=== PATIENT | male | born 1945 | race Caucasian/White ===

== ENCOUNTER → 2020-10-17 | Outpatient (CLI) | payer OTHER ==
[~2020-10-17] MED LIST: CYAN-52 PO; FISH1CAP63 PO; GLIP10TA19 PO; LOSA100T58 PO; METF-446 PO; MULT-603 PO; REGADENOSON 0.4 MG/5 ML PF SYG IVP ONE; SIMV5TAB58 PO; TAMS0.4C32 PO; [UNRECOGNIZED DRUG - CODE] PO; [UNRECOGNIZED DRUG - OTHER] SQ
== END | disposition home or self-care (01) ==
LOC: SHCH 08:31
PROVIDERS: ATTEND Internal Medicine Cardiovascular Disease
DX: I25.10 Atherosclerotic heart disease of native coronary artery without angina pectoris (principal); I51.7 Cardiomegaly
CPT/HCPCS: 78452; 93017; 96374; A9500 ×2; J2785

== ENCOUNTER 2020-10-30 05:47 | Day surgery (SDC) | payer OTHER ==
[2020-10-26 13:00] VITALS: BP 138/66
[2020-10-26 13:23] LABS: BASOPHILS % (AUTO) 1.7 % (0.0-5.0); EOSINOPHILS % (AUTO) 3.4 % (0.0-8.0); HEMATOCRIT 34.1 % (42-54); LYMPHOCYTES % (AUTO) 27.8 % (21.0-51.0); MEAN CORPUSCULAR HEMOGLOBIN 34.1 pg (27.0-33.0); MEAN CORPUSCULAR HGB CONC 33.4 g/dL (32.0-36.0); MEAN CORPUSCULAR VOLUME 102.1 fL (79-99); MONOCYTES % (AUTO) 11.5 % (3.0-13.0); NEUTROPHILS % (AUTO) 55.2 % (40.0-77.0); PLATELET COUNT (AUTO) 133 K/uL (130-400); RED BLOOD CELL COUNT(AUTO) 3.34 MIL/uL (4.50-6.20); RED CELL DISTRIBUTION WIDTH 13.7 % (11.0-15.5); WHITE BLOOD COUNT (AUTO) 7.6 K/uL (4.8-10.8)
[2020-10-26 13:32] LABS: POTASSIUM 5.6 mmol/L (3.5-5.1)
[2020-10-26 13:35] LABS: INR 1.1 (0.85-1.15); PROTHROMBIN TIME 11.9 SEC (9.6-11.6)
[2020-10-26 13:36] LABS: PARTIAL THROMBOPLASTIN TIME 28.5 SEC (26.3-35.5)
[2020-10-26 13:41] LABS: APPEARANCE,URINE Clear (CLEAR); BILIRUBIN,URINE Negative (NEGATIVE); COLOR,URINE Yellow (YELLOW); GLUCOSE, URINE (UA) >=1000 mg/dL (NEGATIVE); KETONES,URINE Negative (NEGATIVE); LEUKOCYTE ESTERASE ,URINE Negative (NEGATIVE); NITRATE,URINE Negative (NEGATIVE); OCCULT BLOOD,URINE Negative (NEGATIVE); PROTEIN,URINE Negative (NEGATIVE); UROBILINOGEN,URINE 0.2 mg/dL (0.2-1.0)
[2020-10-26 13:52] LABS: BACTERIA,URINE Rare /HPF (None Seen); RBC,URINE 0-1 /HPF (0-1); SQUAMOUS EPITHELIAL CELL,UR Rare /HPF (0-2); WBC,URINE 0-1 /HPF (0-1)
[2020-10-30] VITALS (9 sets, daily range): BP systolic 111–141; BP diastolic 48–60
[~2020-10-30] VITALS: Ht 180.3 cm; Wt 122.8 kg
[~2020-10-30 05:47] MED LIST changes: +ASCO500C6 PO; +CHOL-34 PO; -CYAN-52 PO; +EMPA25TA PO; -FISH1CAP63 PO; +INSU300I SQ; +MAGN500C15 PO; +METO-408 PO; +OMEG-148 PO; -REGADENOSON 0.4 MG/5 ML PF SYG IVP ONE; +SITA100T12 PO; +VITA1CAP85 PO; -[UNRECOGNIZED DRUG - OTHER] SQ
[2020-10-30] MEDS ORDERED: IOHEXOL-350 75 ML VIAL IV ONE (07:49)
[2020-10-30] MEDS ORDERED: IOHEXOL-350 50ML VIAL IV ONE (07:49)
[2020-10-30] MEDS ORDERED: MIDAZOLAM HCL 1 MG/ML 2ML VIAL ONE (07:49)
[2020-10-30] MEDS ORDERED: HEPARIN 10,000 UNIT/10ML (1,000 UNIT/ML) VIAL ONE (07:49)
[2020-10-30] MEDS ORDERED: LIDOCAINE HCL 400MG/20ML VIAL ONE (07:49)
[2020-10-30] MEDS ORDERED: 0.9%NACL 1000ML 1,000 ML IV SCH (08:00)
[2020-10-30] MEDS ORDERED: DEXTROSE 50%-WATER 50 ML DISP.SYRIN IV PRN (08:30)
[2020-10-30] MEDS ORDERED: GLUCAGON 1MG KIT 1 MG ML IM PRN (08:30)
[2020-10-30 10:01] LABS: ABG BASE EXCESS -3.1 mmol/L (-2.0-3.0); ABG HCO3 20.9 mmol/L (21.0-28.0); ABG OXYGEN SATURATION 97.7 % (95.0-99.0); ABG PCO2 35 mmHg (35-48)
[2020-10-30 10:03] LABS: HEMATOCRIT 32.7 % (42-54); MEAN CORPUSCULAR HEMOGLOBIN 33.5 pg (27.0-33.0); MEAN CORPUSCULAR VOLUME 101.6 fL (79-99); RED BLOOD CELL COUNT(AUTO) 3.22 MIL/uL (4.50-6.20); RED CELL DISTRIBUTION WIDTH 13.4 % (11.0-15.5); WHITE BLOOD COUNT (AUTO) 6.2 K/uL (4.8-10.8)
[2020-10-30 10:13] LABS: INR 1.13 (0.85-1.15); PROTHROMBIN TIME 12.2 SEC (9.6-11.6)
[2020-10-30 10:14] LABS: PARTIAL THROMBOPLASTIN TIME 28.1 SEC (26.3-35.5)
[2020-10-30 10:16] LABS: HEMOGLOBIN A1C 8.5 % (4.0-6.0)
[2020-10-30 10:17] LABS: ALBUMIN 3.7 g/dL (3.5-5.0); BILIRUBIN,TOTAL 0.9 mg/dL (0.2-1.0); CREATININE 1.6 mg/dL (0.5-1.5); POTASSIUM 5.2 mmol/L (3.5-5.1)
[2020-11-01] MEDS ORDERED: AEC81 PO (11:21)
[2020-11-01] MEDS ORDERED: MAGN500C16 PO (11:21)
== END 2020-10-30 12:30 | disposition home or self-care (01) ==
LOC: DAH 05:47
PROVIDERS: ATTEND Internal Medicine Cardiovascular Disease
DX: I25.118 Atherosclerotic heart disease of native coronary artery with other forms of angina pectoris (principal); I10 Essential (primary) hypertension; E11.9 Type 2 diabetes mellitus without complications; E78.5 Hyperlipidemia, unspecified; E66.9 Obesity, unspecified; Z79.82 Long term (current) use of aspirin; Z79.01 Long term (current) use of anticoagulants; Z79.4 Long term (current) use of insulin; Z79.899 Other long term (current) drug therapy; Z90.89 Acquired absence of other organs; Z98.890 Other specified postprocedural states; Z20.822 Contact with and (suspected) exposure to COVID-19
CPT/HCPCS: 36415 ×2; 36600; 71045; 80048; 80053; 80061; 81001; 82803; 82948; 83036; 83880; 85025; 85027; 85610 ×2; 85730 ×2; 86850; 86900; 86901; 87635; 93005; 93458; 94010; A4215; A4216; A4221; A4222; A4223 ×3; A4606; A4663; C1760; C1894; J1644; J2250; J3490; Q9967; 99156; 99157

== ENCOUNTER → 2023-09-02 | Outpatient (CLI) | payer OTHER ==
[~2023-09-02] MED LIST changes: +AEC81 PO; +AMIO200T68 PO; +APIX5TAB PO; +ASCO500C19 PO; -ASCO500C6 PO; +ATOR40TA71 PO; -LOSA100T58 PO; -MAGN500C15 PO; +MAGN500C16 PO; -METO-408 PO; +METO25TA6 PO; -SIMV5TAB58 PO; -[UNRECOGNIZED DRUG - CODE] PO
== END | disposition home or self-care (01) ==
LOC: SHCH 08:59
PROVIDERS: ATTEND Internal Medicine Cardiovascular Disease
DX: I08.3 Combined rheumatic disorders of mitral, aortic and tricuspid valves (principal); I11.9 Hypertensive heart disease without heart failure; R06.02 Shortness of breath; E78.5 Hyperlipidemia, unspecified; Z95.1 Presence of aortocoronary bypass graft
CPT/HCPCS: 93306